=== PATIENT | male | born 1940 | race Caucasian/White ===

== ENCOUNTER 2019-11-29 15:05 | Emergency (ER) | payer OTHER, MEDICARE, BC ==
[~2019-11-29] VITALS: Ht 172.7 cm; Wt 85.0 kg
[2019-11-29] MEDS ORDERED: diltiazem 5mg/ml 5ml inj. IV ONE (15:25)
[2019-11-29] MEDS ORDERED: normal saline 1000ML IV soln IVB ONE (15:30)
[2019-11-29 15:47] LABS: BASOPHILS % (AUTO) 0.4 % (0-1); EOSINOPHILS # (AUTO) 0.1 X10'3 (0-0.9); EOSINOPHILS % (AUTO) 0.8 % (0-6); HEMATOCRIT 39.6 % (42.0-52.0); HEMOGLOBIN 13.1 g/dl (14.0-17.9); LYMPHOCYTES # (AUTO) 1.8 X10'3 (1.1-4.8); LYMPHOCYTES % (AUTO) 22.9 % (21-51); MEAN CORPUSCULAR HEMOGLOBIN 29.6 PG (27.0-31.0); MEAN CORPUSCULAR VOLUME 89.8 FL (78-98); MEAN PLATELET VOLUME 8.2 FL (7.4-10.4); MONOCYTES # (AUTO) 0.6 X10'3 (0-0.9); MONOCYTES % (AUTO) 8.1 % (2-12); NEUTROPHILS # (AUTO) 5.3 X10'3 (1.8-7.7); NEUTROPHILS % (AUTO) 67.8 % (42-75); PLATELET COUNT 214 X10'3 (140-440); RED BLOOD COUNT 4.41 X10'6 (4.70-6.10); RED CELL DISTRIBUTION WIDTH 13.4 % (11.5-14.5); WHITE BLOOD COUNT 7.8 X10'3 (4.5-11.0)
--- NOTE | 2019-11-29 15:47 | NUR ---
per [facility] 10mg of diltiazem was given, repeat ekg done, will continue to monitor
[2019-11-29 16:03] LABS: ALANINE AMINOTRANSFERASE 31 U/L (12-78); ALBUMIN 3.3 G/DL (3.4-5.0); ALBUMIN/GLOBULIN RATIO 0.9 (1.1-1.5); ALKALINE PHOSPHATASE 50 IU/L (46-116); ANION GAP 9 (8-16); ASPARTATE AMINO TRANSFERASE 18 U/L (10-37); BILIRUBIN,TOTAL 0.4 MG/DL (0.1-1.0); BLOOD UREA NITROGEN 16 MG/DL (7-18); BUN/CREATININE RATIO 12.7 (5.4-32.0); CALCIUM 8.7 MG/DL (8.5-10.1); CHLORIDE 107 MMOL/L (99-107); CREATININE 1.26 MG/DL (0.60-1.10); POTASSIUM 3.8 MMOL/L (3.5-5.1); SODIUM 143 MMOL/L (135-145); TOTAL PROTEIN 6.9 G/DL (6.4-8.2); eGFR 55 ML/MIN
[2019-11-29 16:04] LABS: GLUCOSE 122 MG/DL (70-104)
[2019-11-29 16:09] LABS: MAGNESIUM 1.7 MG/DL (1.5-2.4)
[2019-11-29 16:35] VITALS: BP 134/70
== END 2019-11-29 16:38 | disposition home or self-care (01) ==
LOC: ER 15:05
DX: I47.1 Supraventricular tachycardia (principal); E86.0 Dehydration
CPT/HCPCS: 36415; 80053; 83735; 83880; 84484; 85025; 93005; 96361; 96374; 99284; J7030; J3490

== ENCOUNTER 2023-07-27 09:55 | Day surgery (SDC) | payer OTHER, MEDICARE, BC ==
[~2023-07-27] VITALS: Ht 170.2 cm; Wt 67.9 kg
[2023-07-27] VITALS (15 sets, daily range): BP systolic 121–148; BP diastolic 40–62; PULSE 46–72; RESP 8–17; TEMP 97.3; O2SAT 99–100
[~2023-07-27 09:55] MED LIST: AMA1T PO; ASPI81TA52 PO; OMEP40CA21 PO; PIOG15TA8 PO; ROSU5TAB12 PO
[2023-07-27 11:31] LABS: BASOPHILS # (AUTO) 0.1 X10'3 (0-0.2); BASOPHILS % (AUTO) 1.2 % (0-1); EOSINOPHILS # (AUTO) 0.1 X10'3 (0-0.9); EOSINOPHILS % (AUTO) 1.3 % (0-6); LYMPHOCYTES # (AUTO) 1.2 X10'3 (1.1-4.8); LYMPHOCYTES % (AUTO) 21.9 % (21-51); MEAN CORPUSCULAR HEMOGLOBIN 30.8 PG (27.0-31.0); MEAN CORPUSCULAR HGB CONC 33.3 g/dL (33.0-36.5); MEAN CORPUSCULAR VOLUME 92.5 FL (78-98); MEAN PLATELET VOLUME 8.3 FL (7.4-10.4); MONOCYTES # (AUTO) 0.5 X10'3 (0-0.9); NEUTROPHILS # (AUTO) 3.6 X10'3 (1.8-7.7); NEUTROPHILS % (AUTO) 66.6 % (42-75); PRE OP HEMATOCRIT 33.9 % (42.0-52.0); PRE OP HEMOGLOBIN 11.3 g/dL (14.0-17.9); PRE OP PLATELET COUNT 175 X10'3 (140-440); PRE OP WHITE BLOOD COUNT 5.3 10'3 (4.8-10.8); RED BLOOD COUNT 3.66 X10'6 (4.70-6.10)
[2023-07-27 11:45] LABS: ALBUMIN 3.2 G/DL (3.4-5.0); ALBUMIN/GLOBULIN RATIO 0.9 (1.1-1.5); ALKALINE PHOSPHATASE 47 IU/L (46-116); BLOOD UREA NITROGEN 27 MG/DL (7-18); CALCIUM 9.3 MG/DL (8.5-10.1); CHLORIDE 105 MMOL/L (99-107); CREATININE 1.23 MG/DL (0.60-1.10); PRE OP ALT 16 U/L (30-65); PRE OP ANION GAP 5 (8-16); PRE OP AST 15 U/L (10-37); PRE OP BILIRUB, TOTAL 0.4 MG/DL (0.0-1.0); PRE OP GLUCOSE 107 MG/DL (70-104); PRE OP SODIUM 138 MMOL/L (135-145); TOTAL CARBON DIOXIDE 28.5 MMOL/L (24-32); TOTAL PROTEIN 6.8 G/DL (6.4-8.2); eCRCL 42 ML/MIN; eGFR 56 ML/MIN
[2023-07-27] MEDS: famotidine 20mg tablet PO ONE (11:47)
[2023-07-27] MEDS: ringers solution, lacted 1,000 ML IV SCH (11:47)
[2023-07-27] MEDS: cefazolin 2gm/D5W 100mL 100 ML IV ONE (11:48)
[2023-07-27] MEDS: tamsulosin 0.4mg capsule PO ONE (11:48)
[2023-07-27] MEDS ORDERED: LIDOcaine 1% (10mg/ml)w/preservative inj. 20ml MDV ONE (12:48)
[2023-07-27] MEDS ORDERED: fentaNYL/PF 50MCG/1 ML 2ML syringe ONE (13:02)
[2023-07-27] MEDS ORDERED: sevoflurane 250ml liquid IH ONE (13:02)
[2023-07-27] MEDS ORDERED: midazolam 1 mg/ML 2ml injection ONE (13:02)
[2023-07-27] MEDS ORDERED: propofol inj 20 ML IV ONE (13:03)
[2023-07-27] MEDS ORDERED: rocuronium 10mg/ml inj IV ONE (13:03)
[2023-07-27] MEDS ORDERED: dexamethasone sod phosphate 4mg/ml inj. ONE (13:17)
[2023-07-27] MEDS: LIDOcaine 1% 30ml preserv. free vial IJ ONE (13:30)
[2023-07-27] MEDS: BUPIVAcaine/PF 2.5mg/ml (0.25%) 10ml vial ONE (13:30)
[2023-07-27] MEDS ORDERED: neostigmine methylsulfate 1 MG/ML 10ml vial ONE (14:19)
[2023-07-27] MEDS ORDERED: ringers solution, lacted 1,000 ML IV SCH (14:20)
[2023-07-27] MEDS ORDERED: morphine 4 MG/ML inj SYRINge IV PRN (14:20)
[2023-07-27] MEDS ORDERED: morphine 2 MG/ML inj. syringe IV PRN (14:20)
[2023-07-27] MEDS ORDERED: meperidine/PF 25mg/ml syringe IV PRN ×3 (14:20)
[2023-07-27] MEDS ORDERED: ondansetron/PF 4mg/2ml inj ONE (14:20)
[2023-07-27] MEDS ORDERED: proCHLORperazine 10 MG/2 ml inj IV PRN (14:20)
[2023-07-27] MEDS ORDERED: ondansetron/PF 4mg/2ml inj IV PRN (14:20)
[2023-07-27] MEDS ORDERED: glycopyrrolate 0.2mg/ml inj ONE (14:28)
[2023-07-27] MEDS: HYDROcodone/acetaminophen 5mg/325mg tablet PO PRN (17:27)
== END 2023-07-27 19:59 | disposition home or self-care (01) ==
LOC: PAS 09:55
PROVIDERS: ATTEND Surgery
DX: K40.90 Unilateral inguinal hernia, without obstruction or gangrene, not specified as recurrent (principal); E11.9 Type 2 diabetes mellitus without complications; E78.5 Hyperlipidemia, unspecified; I48.91 Unspecified atrial fibrillation; K21.9 Gastro-esophageal reflux disease without esophagitis; M19.90 Unspecified osteoarthritis, unspecified site; Z79.82 Long term (current) use of aspirin; Z79.84 Long term (current) use of oral hypoglycemic drugs; Z79.899 Other long term (current) drug therapy; Z98.890 Other specified postprocedural states; Z88.8 Allergy status to other drugs, medicaments and biological substances; Z82.49 Family history of ischemic heart disease and other diseases of the circulatory system; Z83.3 Family history of diabetes mellitus
CPT/HCPCS: 36415; 49650; 80053; 82948; 85025; 93005; C1781; J0690; J1100; J2250; J2405; J2704; J2710; J3010; J3490; J7030; J7120; S2900; Z7506; Z7508; Z7512; A4215; A4618